=== PATIENT | male | born 2000 | race Caucasian/White ===

== ENCOUNTER 2021-10-20 00:41 | Emergency (ER) | payer SELFPAY ==
--- NOTE | 2021-10-20 03:48 | ED Physician Documentation ---
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 He was smoking marijuana approximately 6 PM. Strongly denies SI, HI He says he has smoked marijuana before without these symptoms but tonight was the most he had ever smoked Review of Systems Eyes: reports: Reviewed and negative Cardiac: reports: Reviewed and negative Respiratory: reports: Dyspnea. denies: Cough GI: reports: Reviewed and negative PD PAST MEDICAL HISTORY - Past Medical History Past Medical History: Yes Psych: Depression, Anxiety - Past Surgical History Past Surgical History: No - Present Medications Home Medications: Ambulatory Orders Medication Instructions Recorded Confirmed hydrOXYzine HCL [Hydroxyzine HCl] 25 mg PO QPM 10/20/21 10/20/21 - Allergies Allergies/Adverse Reactions: Allergies Allergy/AdvReac Type Severity Reaction Status Date / Time No Known Drug Allergies Allergy Verified 10/20/21 00:53 - Social History Does the pt smoke?: No Smoking Status: Never smoker Does the pt drink ETOH?: No Does the pt have substance abuse?: Yes Substance Use and Type: Marijuana - Immunizations Immunizations are current?: Yes - POLST Patient has POLST: No PD ED PE NORMAL - Vitals Vital signs reviewed: Yes - General General: Alert and oriented X 3, No acute distress, Well developed/nourished - HEENT HEENT: PERRL (equal but mildly dilated, 4-5mm bilaterally), EOMI, Moist mucous membranes, Pharynx benign - Neck Neck: Supple, no meningeal sign - Cardiac Cardiac: RRR, No murmur - Respiratory Respiratory: No respiratory distress, Clear bilaterally - Abdomen Abdomen: Soft, Non tender - Neuro Neuro: Alert and oriented X 3, Normal speech Eye Opening: Spontaneous Motor: Obeys Commands Verbal: Oriented GCS Score: 15 - Psych Psych: Normal mood, Normal affect Results - Vitals Vitals: Oxygen O2 Source Room air PD MEDICAL DECISION MAKING - ED course Complexity details: considered differential, d/w patient ED course: presents to ED after using more marijuana than he has previously. He had nausea, mild dyspnea, anxiety, and couldnt sleep. Was recently prescribed hydroxyzine for anxiety, wasnt helping with sleep tonight. There was a prolonged wait to be seen due to acuity of other patients in ED that required ED care as a priority. By the time I evaluated this patient, he says his symptoms have significantly improved and I feel alright now and requests discharge. We reviewed INDER MURPHY (again strongly denies), and I offered to hold patient in ED until he feels back to baseline. He says he feels close enough to baseline that he feels comfortable going home. He declines any rx including something for sleep. Advised to not use marijuana again. Departure - Departure Disposition: Home, Self Care Clinical Impression: Marijuana use Condition: Good Instructions: ED Marijuana Abuse Discharge Date/Time: 10/20/21 04:39
[2021-10-20 04:39] VITALS: BP 118/70
== END 2021-10-20 04:39 | disposition home or self-care (01) ==
LOC: ED 00:41
DX: F41.9 Anxiety disorder, unspecified (principal); R06.00 Dyspnea, unspecified; G47.00 Insomnia, unspecified
CPT/HCPCS: 99281